=== PATIENT | female | born 1980 | race Caucasian/White ===

== ENCOUNTER → 2016-12-13 | Outpatient (CLI) | payer MEDICAID ==
[~2016-12-13] MED LIST: GADOBUTROL 10 MMOL/10 ML VIAL ONE
== END | disposition home or self-care (01) ==
LOC: CFH 14:07
PROVIDERS: ATTEND Neurological Surgery
DX: E23.6 Other disorders of pituitary gland (principal); H46.8 Other optic neuritis
CPT/HCPCS: 70543; 70553; A9585

== ENCOUNTER → 2017-08-15 | Outpatient (CLI) | payer OTHER, MEDICAID | LOC: CFH 08-07 10:02 | PROVIDERS: ATTEND Neurological Surgery | DX: E23.6 Other disorders of pituitary gland (principal); R51 Headache | CPT/HCPCS: 70553; A9585 ==

== ENCOUNTER → 2017-09-18 | Outpatient (CLI) | payer OTHER, MEDICAID | END | disposition home or self-care (01) | LOC: CFH 07:48 | PROVIDERS: ATTEND Physician Assistant | DX: D25.9 Leiomyoma of uterus, unspecified (principal); N83.8 Other noninflammatory disorders of ovary, fallopian tube and broad ligament; Z98.51 Tubal ligation status | CPT/HCPCS: 76830 ==